=== PATIENT | female | born 1985 | race American Indian/Alaskan Native ===

== ENCOUNTER 2017-12-24 03:32 | Emergency (ER) | payer MEDICAID ==
[2017-12-24 04:55] LABS: Alanine Aminotransferase 12 units/L (7-56); Albumin 3.7 g/dL (3.9-5); BUN/Creatinine Ratio 9; Blood Urea Nitrogen 7 mg/dL (7-17); Calcium 8.2 mg/dL (8.4-10.2); Hemolysis Index 2; Lipase 16 units/L (13-60)
[2017-12-24 06:04] LABS: Basophils % (Auto) 0.3 % (0.0-1.8); Eosinophils % (Auto) 0.4 % (0.0-4.3); Hematocrit 34.1 % (30.3-42.9); Hemoglobin 11.2 gm/dl (10.1-14.3); Lymphocytes # (Auto) 2.2 K/mm3 (1.2-5.4); Lymphocytes % (Auto) 34.4 % (13.4-35.0); Mean Corpuscular HGB Conc 33 % (30-34); Mean Corpuscular Hemoglobin 25 pg (28-32); Mean Corpuscular Volume 77 fl (79-97); Monocytes # (Auto) 0.5 K/mm3 (0.0-0.8); Platelet Count 182 K/mm3 (140-440); Red Blood Count 4.44 M/mm3 (3.65-5.03); Red Cell Distribution Width 14.9 % (13.2-15.2)
[2017-12-24 07:08] LABS: Bilirubin,Urine NEG (Negative); Blood,Urine MOD (Negative); Color,Urine Yellow (Yellow); Mucus,Urine 3+ /HPF; Protein,Urine <15 mg/dL mg/dL (Negative)
[2017-12-24] MEDS ORDERED: ALUM-MAG HYDROX-SIMETH 200-200-20MG/5ML PO ONE (09:32)
--- NOTE | 2017-12-24 10:13 | Emergency Department Report ---
ED N/V/D HPI - General Chief complaint: Abdominal Pain Stated complaint: DIZZY ,VOMITING, STOMACH PAIN Time Seen by Provider: 12/24/17 09:15 Source: patient Mode of arrival: Ambulatory Limitations: No Limitations - History of Present Illness MD complaint: nausea, vomiting, diarrhea Onset/Timin (DAY) -: Gradual Description of Vomiting: food contents Description of Diarrhea: water Associated Abdominal Pain: Yes Location: epigastric Radiation: none Severity: moderate Pain Scale: 6 Quality: cramping Consistency: constant Improves with: none Worsens with: none Context: possible food poisoning Associated Symptoms: denies other symptoms - Related Data Previous Rx's Medication Instructions Recorded Last Taken Type Famotidine [Pepcid] 20 mg PO DAILY #14 tablet 12/24/17 Unknown Rx Ondansetron [Zofran Odt] 4 mg PO Q6H PRN #20 tab.rapdis 12/24/17 Unknown Rx Allergies Allergy/AdvReac Type Severity Reaction Status Date / Time No Known Allergies Allergy Unverified 12/24/17 04:26 ED Review of Systems ROS: Stated complaint: DIZZY ,VOMITING, STOMACH PAIN Other details as noted in HPI Comment: All other systems reviewed and negative ED Past Medical Hx - Past Medical History Previous Medical History?: No - Surgical History Past Surgical History?: No - Social History Smoking Status: Never Smoker Substance Use Type: None - Medications Home Medications: Home Medications Medication Instructions Recorded Confirmed Last Taken Type Famotidine [Pepcid] 20 mg PO DAILY #14 tablet 12/24/17 Unknown Rx Ondansetron [Zofran Odt] 4 mg PO Q6H PRN #20 tab.rapdis 12/24/17 Unknown Rx ED Physical Exam - General Limitations: No Limitations General appearance: alert, in no apparent distress - Head Head exam: Present: atraumatic, normocephalic - Eye Eye exam: Present: normal appearance - ENT ENT exam: Present: mucous membranes moist - Neck Neck exam: Present: normal inspection - Respiratory Respiratory exam: Present: normal lung sounds bilaterally. Absent: respiratory distress - Cardiovascular Cardiovascular Exam: Present: regular rate, normal rhythm. Absent: systolic murmur, diastolic murmur, rubs, gallop - GI/Abdominal GI/Abdominal exam: Present: soft, normal bowel sounds. Absent: tenderness - Rectal Rectal exam: Present: deferred - Extremities Exam Extremities exam: Present: normal inspection - Back Exam Back exam: Present: normal inspection, full ROM - Neurological Exam Neurological exam: Present: alert, oriented X3 - Psychiatric Psychiatric exam: Present: normal affect, normal mood - Skin Skin exam: Present: warm, dry, intact, normal color. Absent: rash ED Course Vital Signs 12/24/17 12/24/17 12/24/17 03:33 04:20 06:46 Temperature 98.9 F Pulse Rate 92 H 89 Respiratory 16 Rate Blood Pressure 129/71 129/71 Blood Pressure [Right] O2 Sat by Pulse 99 99 100 Oximetry 12/24/17 12/24/17 12/24/17 07:00 07:15 07:31 Temperature Pulse Rate 80 80 78 Respiratory 20 16 15 Rate Blood Pressure 144/86 144/86 136/90 Blood Pressure [Right] O2 Sat by Pulse 99 100 99 Oximetry 12/24/17 12/24/17 12/24/17 07:45 08:00 08:15 Temperature Pulse Rate 80 78 77 Respiratory 15 15 17 Rate Blood Pressure 148/88 150/86 150/86 Blood Pressure 150/86 [Right] O2 Sat by Pulse 100 100 97 Oximetry 12/24/17 12/24/17 12/24/17 08:31 08:45 09:00 Temperature Pulse Rate 79 78 82 Respiratory 12 15 15 Rate Blood Pressure 135/76 136/85 133/82 Blood Pressure [Right] O2 Sat by Pulse 100 100 99 Oximetry 12/24/17 09:15 Temperature Pulse Rate 82 Respiratory 16 Rate Blood Pressure 133/82 Blood Pressure [Right] O2 Sat by Pulse 98 Oximetry - Reevaluation(s) Reevaluation #1: 12/24/17 10:10 I GAVE THE PATIENT SOME MAALOX AND IT IMPROVED HER PAIN ED Medical Decision Making - Lab Data Result diagrams: 12/24/17 04:28 12/24/17 04:28 - EKG Data -: EKG Interpreted by Me EKG shows normal: sinus rhythm (RATE OF 116. SINUS TACHYCARDIA), axis (NORMAL), intervals (INTERVAL), QRS complexes (NORMAL), ST-T waves (NORMAL) Rate: tachycardia (SINUS) Critical care attestation.: If time is entered above; I have spent that time in minutes in the direct care of this critically ill patient, excluding procedure time. ED Disposition Clinical Impression: Gastroenteritis Disposition: DC-01 TO HOME OR SELFCARE Is pt being admited?: No Does the pt Need Aspirin: No Condition: Stable Instructions: Abdominal Pain (ED) Additional Instructions: INCREASE ORAL FLUID INTAKE Prescriptions: Famotidine [Pepcid] 20 mg PO DAILY #14 tablet Ondansetron [Zofran Odt] 4 mg PO Q6H PRN #20 tab.rapdis PRN Reason: Vomiting Referrals: JANEY CANDELARIA MD [Primary Care Provider] - 3-5 Days Time of Disposition: 10:18 Print Language: TAJIK
[2017-12-24 10:32] VITALS: BP 121/75
== END 2017-12-24 10:32 | disposition home or self-care (01) ==
LOC: ED 03:32
DX: K52.9 Noninfective gastroenteritis and colitis, unspecified (principal)
CPT/HCPCS: 36415; 80053; 81001; 83690; 84703; 85025; 93005; 93010; 99283

== ENCOUNTER 2019-03-18 17:25 | Emergency (ER) | payer SELFPAY ==
[2019-03-18 17:47] VITALS: BP 152/82
--- NOTE | 2019-03-18 17:49 | Emergency Department Report ---
Blank Doc - Documentation Documentation: This is a 34-year-old female that presents with pelvic cramping and dysuria. This initial assessment/diagnostic orders/clinical plan/treatment(s) is/are subject to change based on patient's health status, clinical progression and re- assessment by fellow clinical providers in the ED. Further treatment and workup at subsequent clinical providers discretion. Patient/guardians urged not to elope from the ED as their condition may be serious if not clinically assessed and managed. Initial orders include: 1- Patient sent to [facility] for further evaluation and treatment 2- UA
[2019-03-18 19:46] LABS: Bacteria,Urine 1+ /HPF (Negative); Bilirubin,Urine NEG (Negative); Blood,Urine NEG (Negative); Color,Urine Yellow (Yellow); Mucus,Urine FEW /HPF; Urobilinogen,Urine < 2.0 mg/dL (<2.0)
[2019-03-18 19:51] LABS: HCG Qualitative,Urine Negative (Negative)
== END 2019-03-19 00:40 | disposition left against medical advice (07) ==
LOC: ED 17:25
DX: R10.9 Unspecified abdominal pain (principal); Z53.21 Procedure and treatment not carried out due to patient leaving prior to being seen by health care provider
CPT/HCPCS: 81001; 81025